=== PATIENT | male | born 1990 | race American Indian/Alaskan Native ===

== ENCOUNTER 2016-06-29 13:00 | Emergency (ER) | payer OTHER ==
[2016-06-29 13:46] VITALS: BP 116/72
--- NOTE | 2016-06-29 21:12 | Emergency Department Report ---
Chief Complaint: Pain General Stated Complaint: BODY PAIN/DIZZY Time Seen by Provider: 06/29/16 20:06 - HPI History of Present Illness: 26-year-old male presents today complaining of body aches 2 days. Patient states he is having back pain and it hurts when he presses on his chest. Pain is worse with movement and rates it as a 6 out of 10. Denies dysuria, increased urinary frequency or urgency, cold symptoms, fever, chills, nausea, vomiting, abdominal pain, shortness of breath. Denies trying any medication for symptomatic relief. Patient states that he had some milk prior to symptoms. Denies injury or trauma. - ROS Review of Systems: Per HPI - Exam Vital Signs: Vital Signs 06/29/16 13:43 Temperature 98.8 F Pulse Rate 81 Respiratory 18 Rate Blood Pressure 116/72 O2 Sat by Pulse 99 Oximetry Physical Exam: GENERAL: The patient is well-developed and well-nourished. Patient is in NAD. HEAD: Normocephalic. Atraumatic. EYES: PERRL. EARS: External auditory canals and tympanic membranes clear; hearing grossly intact. NOSE: Normal nasal mucosa with no nasal discharge. THROAT: No erythema, swelling or exudates. NECK: Supple, nontender, without lymphadenopathy. No midline or paraspinal tenderness. BACK: Full ROM. No midline tenderness. Minimal tenderness to palpation of paraspinal thoracic region. No tenderness to palpation or sciatic notch bilaterally. Negative straight leg raise bilaterally. CHEST/LUNGS: Clear to auscultation throughout. CHEST WALL: Minimal tenderness to palpation over the sternum. HEART/CARDIOVASCULAR: Regular rate and rhythm. No murmurs, rubs or gallops. ABDOMEN: Abdomen is soft, nontender. Bowel sounds normoactive. No guarding or rebound tenderness. EXTREMITIES: Peripheral pulses intact. Capillary refill less than 2 seconds. NEURO: Alert and oriented x 3. Normal gait. MSE screening note: Focused history and physical exam performed. Due to findings the following was ordered: ED Disposition for MSE Disposition: MEDICAL SCREENING EXAM-LEFT Condition: Stable Referrals: PRIMARY CARE, [Primary Care Provider] - 3-5 Days
== END 2016-06-29 21:09 | disposition left against medical advice (07) ==
LOC: ED 13:00
DX: M79.1 Myalgia (principal); M54.9 Dorsalgia, unspecified; R07.9 Chest pain, unspecified; R42 Dizziness and giddiness; Z53.21 Procedure and treatment not carried out due to patient leaving prior to being seen by health care provider

== ENCOUNTER 2016-10-11 09:45 | Emergency (ER) | payer OTHER ==
--- NOTE | 2016-10-11 13:02 | Emergency Department Report ---
ED Chest Pain HPI - General Chief Complaint: Chest Pain Stated Complaint: CHEST PAIN Time Seen by Provider: 10/11/16 12:32 Source: patient Mode of arrival: Ambulatory Limitations: No Limitations - History of Present Illness Initial Comments: 26-year-old male past medical history rhabdomyolysis, persistent chest pain presents with complaint of 2-3 days of anterior chest discomfort. States that it occurs at rest or with exertion last for a few seconds and goes away. Patient states that he has been evaluated for chest pain in the past. Denies any associated diaphoresis shortness of breath nausea vomiting diarrhea no abdominal pain. Denies any direct trauma to chest. No recent travel. Denies any recent surgeries. No history of heart attack in mother or father. No personal history of PE or DVT. Reports no leg swelling. No recent surgeries. On exam patient is awake alert and oriented 3 not in acute distress appears comfortable fully cooperative. Has not taken any medicine for the pain. Onset/Timin -: days(s) Onset: during rest, during exertion Pain Location: substernal Pain Radiation: none Severity: moderate Severity scale (0 -10): 5 Quality: aching Consistency: intermittent, now resolved Improves With: nothing Worsens With: nothing re: nausea - Related Data Previous Rx's Medication Instructions Recorded Last Taken Type Famotidine [Pepcid] 20 mg PO BID PRN #30 tablet 10/11/16 Unknown Rx Naproxen [Naproxen TAB] 250 mg PO BID PRN #25 tablet 10/11/16 Unknown Rx Allergies Allergy/AdvReac Type Severity Reaction Status Date / Time No Known Allergies Allergy Verified 09/03/15 18:13 RAHEL score - Rahel Score Age > 65: (0) No Aspirin use within the Past 7 Days: (0) No 3 or more CAD Risk Factors: (0) No 2 or more Angina events in past 24 hrs: (0) No Known CAD with more than 50% Stenosis: (0) No Elevated Cardiac Markers: (0) No ST Deviation Greater than 0.5mm: (0) No RAHEL Score: 0 ED Review of Systems ROS: Stated complaint: CHEST PAIN Other details as noted in HPI Constitutional: denies: chills, fever Eyes: denies: eye pain, eye discharge, vision change ENT: denies: ear pain, throat pain Respiratory: denies: cough, shortness of breath, wheezing Cardiovascular: chest pain (intermittent chest pain, this is occurred to him in the past). denies: palpitations Endocrine: no symptoms reported Gastrointestinal: denies: abdominal pain, nausea, diarrhea Genitourinary: denies: urgency, dysuria Musculoskeletal: denies: back pain, joint swelling, arthralgia Skin: denies: rash, lesions Neurological: denies: headache, weakness, paresthesias Psychiatric: denies: anxiety, depression Hematological/Lymphatic: denies: easy bleeding, easy bruising ED Past Medical Hx - Past Medical History Previous Medical History?: Yes Hx Hypertension: No Hx CVA: No Hx Heart Attack/AMI: No Hx Congestive Heart Failure: No Hx Diabetes: No Hx Deep Vein Thrombosis: No Hx Pulmonary Embolism: No Hx GERD: No Hx Liver Disease: No Hx Renal Disease: No Hx Sickle Cell Disease: No Hx Arthritis: No Hx Headaches / Migraines: No Hx Seizures: No Hx Kidney Stones: No Hx Psychiatric Treatment: No Hx Asthma: No Hx COPD: No Hx Tuberculosis: No Hx Dementia: No Hx HIV: No - Surgical History Past Surgical History?: No Hx Coronary Stent: No Hx Open Heart Surgery: No Hx Pacemaker: No Hx Internal Defibrillator: No Hx Cholecystectomy: No Hx Appendectomy: No Hx Breast Surgery: No - Social History Smoking Status: Never Smoker Substance Use Type: None - Medications Home Medications: Home Medications Medication Instructions Recorded Confirmed Last Taken Type Famotidine [Pepcid] 20 mg PO BID PRN #30 tablet 10/11/16 Unknown Rx Naproxen [Naproxen TAB] 250 mg PO BID PRN #25 tablet 10/11/16 Unknown Rx ED Physical Exam - General Limitations: No Limitations General appearance: alert, in no apparent distress - Head Head exam: Present: atraumatic, normocephalic - Eye Eye exam: Present: normal appearance, PERRL, EOMI - ENT ENT exam: Present: mucous membranes moist - Neck Neck exam: Present: normal inspection, full ROM - Respiratory Respiratory exam: Present: normal lung sounds bilaterally, chest wall tenderness (reproducible pain in anterior chest wall at borders of sternum). Absent: respiratory distress - Cardiovascular Cardiovascular Exam: Present: regular rate, normal rhythm. Absent: systolic murmur, diastolic murmur, rubs, gallop - GI/Abdominal GI/Abdominal exam: Present: soft, normal bowel sounds - Rectal Rectal exam: Present: deferred - Extremities Exam Extremities exam: Present: normal inspection, normal capillary refill - Back Exam Back exam: Present: normal inspection - Neurological Exam Neurological exam: Present: alert, oriented X3, CN II-XII intact, normal gait - Psychiatric Psychiatric exam: Present: normal affect, normal mood - Skin Skin exam: Present: warm, dry, intact, normal color. Absent: rash ED Course Vital Signs 10/11/16 10/11/16 10:06 13:18 Temperature 98.2 F Pulse Rate 68 Respiratory 20 16 Rate Blood Pressure 115/76 O2 Sat by Pulse 100 Oximetry ED Medical Decision Making - Lab Data Result diagrams: 10/11/16 13:44 10/11/16 13:44 - Medical Decision Making A/P: Musculoskeletal chest pain, costochondritis 1-this patient has had history of recurrent chest pain we performed EKG chest x- ray labs including troponin and CK, all within normal limits. D-dimer negative. 2-RAHEL score 0, HEART Score 0 points, Low Score (0-3 points) Risk of MACE of 0.9 -1.7%. 3-patient's CK only very mildly elevated in 300s, patient has history of rhabdomyolysis but does not have current clinical symptoms or lab work suggestive of 4-agency history negative lab findings and negative diagnostics here in the ED with low risk stratification for PE and heart disease his pain is most likely musculoskeletal as it is reproducible on clinical exam. I will give patient outpatient follow-up with cardiology. 5-naproxen 500 mg when necessary for discomfort, will also give patient Pepcid to mitigate any heartburn 6- case d/w dr. granados before wi Critical care attestation.: If time is entered above; I have spent that time in minutes in the direct care of this critically ill patient, excluding procedure time. ED Disposition Clinical Impression: Costochondral chest pain Disposition: DISCHARGED TO HOME OR SELFCARE Is pt being admited?: No Does the pt Need Aspirin: No Condition: Stable Instructions: Chest Pain (ED), Costochondritis (ED) Prescriptions: Famotidine [Pepcid] 20 mg PO BID PRN #30 tablet PRN Reason: Indigestion Naproxen [Naproxen TAB] 250 mg PO BID PRN #25 tablet PRN Reason: Pain Referrals: KEN THEODORE MD [Staff Physician] - 3-5 Days ARSEN OROZCO MD [Staff Physician] - 3-5 Days [facility] [Provider Group] - 3-5 Days Forms: Work/School Release Form(ED) Time of Disposition: 15:32
[2016-10-11] MEDS ORDERED: TYLENOL PO ONE (13:04)
--- NOTE | 2016-10-11 13:35 | XRay Report ---
CHEST 2 VIEWS INDICATION: Chest pain. COMPARISON: 09/03/2015. FINDINGS: PA and lateral chest radiographs demonstrate normal cardiomediastinal silhouette. Clear lungs. Intact bones. CONCLUSION: No acute disease in the chest. Thank you for the opportunity to participate in this patient's care.
[2016-10-11 14:04] LABS: Basophils % (Auto) 1.2 % (0.0-1.8); Eosinophils % (Auto) 2.9 % (0.0-4.3); Hematocrit 42.1 % (35.5-45.6); Hemoglobin 14.7 gm/dl (11.8-15.2); Mean Corpuscular HGB Conc 35 % (32-34); Mean Corpuscular Hemoglobin 27 pg (28-32); Mean Corpuscular Volume 77 fl (84-94); Platelet Count 183 K/mm3 (140-440); Red Blood Count 5.47 M/mm3 (3.65-5.03); Red Cell Distribution Width 13.9 % (13.2-15.2)
[2016-10-11 14:09] LABS: Bilirubin,Urine NEG (Negative); Blood,Urine NEG (Negative); Ketones,Urine NEG (Negative); Leukocyte Esterase,Urine NEG (Negative); Nitrite,Urine NEG (Negative); Protein,Urine <15 mg/dL mg/dL (Negative); Urobilinogen,Urine < 2.0 mg/dL (<2.0); WBC,Urine < 1.0 /HPF (0.0-6.0)
[2016-10-11 14:20] LABS: Anion Gap 13 mmol/L; Blood Urea Nitrogen 10 mg/dL (9-20); Calcium 9.2 mg/dL (8.4-10.2); Carbon Dioxide 30 mmol/L (22-30); Chloride 102.5 mmol/L (98-107); Creatine Kinase 343 units/L (55-170); Glucose 70 mg/dL (75-100); Potassium 3.9 mmol/L (3.6-5.0); Sodium 142 mmol/L (137-145)
[2016-10-11 16:02] VITALS: BP 114/69
== END 2016-10-11 15:34 | disposition home or self-care (01) ==
LOC: ED 09:45
DX: M94.0 Chondrocostal junction syndrome [Tietze] (principal); R07.89 Other chest pain
CPT/HCPCS: 36415; 71020; 80048; 81001; 82550; 82553; 83735; 84484; 85025; 85379; 93005; 93010

== ENCOUNTER 2016-12-29 11:29 | Emergency (ER) | payer OTHER ==
--- NOTE | 2016-12-29 15:22 | Cat Scan Report ---
FINAL REPORT PROCEDURE: CT HEAD/BRAIN WO CON TECHNIQUE: Computerized tomography of the head was performed without contrast material. HISTORY: headache COMPARISON: No prior studies are available for comparison. FINDINGS: No CT evidence of intracranial mass, hemorrhage, acute territorial infarction, or hydrocephalus. The intracranial arteries are symmetric in density. Calvarium is intact. Visualized paranasal sinuses and mastoids are aerated. IMPRESSION: No CT evidence of acute abnormality
--- NOTE | 2016-12-29 16:36 | Emergency Department Report ---
Entered by JERALD METCALF, acting as scribe for ISA VILLA PA. ED Headache HPI - General Chief Complaint: Headache Stated Complaint: HEAD PAIN Time Seen by Provider: 12/29/16 14:43 Source: patient Exam Limitations: no limitations - History of Present Illness Initial Comments: 26 y/o male presents to the ED c/o headache x 1 week. Associated symptoms include neck pain and sinus pain but he denies blurry vision, nausea, vomiting, fever and chills. Pain is described as 6/10 on a severity scale. No alleviating or aggravating factors. NKDA. Headache has been coming and going over the past week with no episode of chronic headache. Patient also reported that he is having in pain but both nasal area. Nasal congestion without any running. Denies any cough, shortness of breath or chest pain. Timing/Duration: 1 week Quality: severe, achy Head Injury Location: temporal, parietal, other (right side of head radiating to back) Recent Head Trauma: no recent headache/trauma, frequent headaches (right side of head times one week) Modifying Factors: improves with: rest Associated Symptoms: other (neck pain, sinus pain, no blurry vision). denies: confusion, fatigue, facial pain, fever/chills, flushing, loss of consciousness, nausea/vomiting, nasal congestion, nasal drainage, numbness in legs/feet, rash, seizures, sinus infection, stiff neck, vision changes, weakness Allergies/Adverse Reactions: Allergies No Known Allergies Allergy (Verified 12/29/16 11:46) Home Medications: Ambulatory Orders Amoxicillin/K Clav Tab [Augmentin 875 mg] 1 tab PO Q12HR #20 tab 12/29/16 Cetirizine HCl [ZyrTEC] 10 mg PO QDAY #14 capsule 12/29/16 Fluticasone [Flonase] 1 spray NS QDAY #1 bottle 12/29/16 Ibuprofen [Motrin] 600 mg PO Q8H PRN #15 tablet 12/29/16 ED Review of Systems Comment: All other systems reviewed and negative Constitutional: denies: chills, fever Eyes: denies: eye discharge, vision change, other (blurry vision) ENT: congestion. denies: ear pain, throat pain, hearing loss, epistaxis Respiratory: no symptoms reported Cardiovascular: denies: chest pain, palpitations, edema, syncope Gastrointestinal: denies: abdominal pain, nausea, vomiting Skin: denies: rash Neurological: headache. denies: weakness, confusion, abnormal gait, vertigo ED Past Medical Hx - Past Medical History Previous Medical History?: No Hx Hypertension: No Hx CVA: No Hx Heart Attack/AMI: No Hx Congestive Heart Failure: No Hx Diabetes: No Hx Deep Vein Thrombosis: No Hx Pulmonary Embolism: No Hx GERD: No Hx Liver Disease: No Hx Renal Disease: No Hx Sickle Cell Disease: No Hx Arthritis: No Hx Headaches / Migraines: No Hx Seizures: No Hx Kidney Stones: No Hx Psychiatric Treatment: No Hx Asthma: No Hx COPD: No Hx Tuberculosis: No Hx Dementia: No Hx HIV: No - Surgical History Past Surgical History?: No Hx Coronary Stent: No Hx Open Heart Surgery: No Hx Pacemaker: No Hx Internal Defibrillator: No Hx Cholecystectomy: No Hx Appendectomy: No Hx Breast Surgery: No - Family History Family history: no significant - Social History Smoking Status: Never Smoker Substance Use Type: None - Medications Home Medications: Home Medications Medication Instructions Recorded Confirmed Last Taken Type Amoxicillin/K Clav Tab [Augmentin 1 tab PO Q12HR #20 tab 12/29/16 Unknown Rx 875 mg] Cetirizine HCl [ZyrTEC] 10 mg PO QDAY #14 capsule 12/29/16 Unknown Rx Fluticasone [Flonase] 1 spray NS QDAY #1 bottle 12/29/16 Unknown Rx Ibuprofen [Motrin] 600 mg PO Q8H PRN #15 tablet 12/29/16 Unknown Rx ED Physical Exam - General Limitations: No Limitations General appearance: alert, in no apparent distress - Head Head exam: Present: atraumatic, normocephalic, normal inspection - Expanded Head Exam Expanded Head exam: Absent: laceration, abrasion, contusion, hematoma, racoon eyes, enciso's sign, general tenderness, tenderness of temporal artery, CSF rhinorrhea , CSF otorrhea - Eye Eye exam: Present: normal appearance, PERRL, EOMI. Absent: periorbital swelling , periorbital tenderness Pupils: Present: normal accommodation - ENT ENT exam: Present: normal exam, normal orophraynx, mucous membranes moist, normal external ear exam, other (maxillary sinus tender to palpate, congested erythema, clear drainage, congested behind TM's). Absent: TM's normal bilaterally - Neck Neck exam: Present: normal inspection, full ROM. Absent: tenderness, meningismus, lymphadenopathy - Respiratory Respiratory exam: Present: normal lung sounds bilaterally. Absent: respiratory distress, chest wall tenderness - Cardiovascular Cardiovascular Exam: Present: regular rate, normal rhythm, normal heart sounds. Absent: systolic murmur, diastolic murmur - GI/Abdominal GI/Abdominal exam: Present: soft, normal bowel sounds. Absent: tenderness, guarding, rebound - Extremities Exam Extremities exam: Present: normal inspection, full ROM, normal capillary refill. Absent: tenderness, pedal edema, joint swelling, calf tenderness - Back Exam Back exam: Present: normal inspection, full ROM. Absent: tenderness - Neurological Exam Neurological exam: Present: alert, oriented X3, normal gait, reflexes normal. Absent: motor sensory deficit - Expanded Neurological Exam Expanded Neurological exam: Absent: innattentive, memory loss-remote event, memory loss- recent event, ataxia, receptive aphasia, expressive aphasia, total aphasia, tremor, protecting the airway Patient oriented to: Present: person, place, time Speech: Present: fluid speech Cranial nerves: EOM's Intact: Normal, Gag Reflex: Normal, Tongue Deviation: Normal, Nystagmus: Normal, Facial Sensation: Normal, Facial Palsy with Forehead Movement: Normal, Facial Palsy without Forehead Movement: Normal Cerebellar function: Finger to Nose: Normal, Heel to [place]: Normal, Romberg: Normal Upper motor neuron: Al Neglect: Normal, Pronator Drift: Normal, Babinski Sign : Normal, Sensory Extinction: Normal Sensory exam: Upper Extremity Light Touch: Normal, Upper Extremity Pin Prick: Normal, Upper Extremity Temperature: Normal, UE 2 Point Discrimination: Normal, Lower Extremity Light Touch: Normal, Lower Extremity Pin Prick: Normal, Lower Extremity Temperature: Normal, LE 2 Point Discrimination: Normal Motor strength exam: RUE: 5, LUE: 5, RLE: 5, LLE: 5 DTR: bicep (R): 2+, bicep (L): 2+, tricep (R): 2+, tricep (L): 2+, knee (R): 2+ , knee (L): 2+, ankle (R): 2+, ankle (L): 2+ Best Eye Response ([place]): (4) open spontaneously Best Motor Response ([place]): (6) obeys commands Best Verbal Response ([place]): (5) oriented Joana Total: 15 - Psychiatric Psychiatric exam: Present: normal affect, normal mood - Skin Skin exam: Present: warm, dry, intact, normal color. Absent: rash ED Course Vital Signs 12/29/16 11:42 Temperature 98.6 F Pulse Rate 83 Respiratory 18 Rate Blood Pressure 131/86 O2 Sat by Pulse 100 Oximetry - Reevaluation(s) Reevaluation #1: 12/29/16 16:15 Patient stable throughout ED course ED Medical Decision Making - Radiology Data Radiology results: report reviewed CT scan of the head revealed no evidence of abnormality. - Medical Decision Making ED course: Patient with headache and sinusitis. I discussed the patient diagnosis and treatment plan and also CT scan results and he voiced understanding of discharge diagnosis. Patient requests an upper primary care doctor so I refer him to on-call Dr. Medina. Patient discharged home with prescription for Zyrtec, Flonase and Augmentin. ED Disposition Clinical Impression: Sinusitis nasal Qualifiers: Sinusitis location: maxillary Chronicity: acute Recurrence: non-recurrent Qualified Code(s): J01.00 - Acute maxillary sinusitis, unspecified Headache Qualifiers: Headache type: unspecified Headache chronicity pattern: acute headache Intractability: not intractable Qualified Code(s): R51 - Headache Disposition: - TO HOME OR SELFCARE Is pt being admited?: No Does the pt Need Aspirin: No Condition: Stable Instructions: Sinusitis (ED), Acute Headache (ED) Additional Instructions: Please follow up with primary care physician that I refer due to. Call and Saturday to schedule an appointment for physical exam Take medication as prescribed. You can use saline nasal wash to fleshier nostrils. Prescriptions: Amoxicillin/K Clav Tab [Augmentin 875 mg] 1 tab PO Q12HR #20 tab Cetirizine HCl [ZyrTEC] 10 mg PO QDAY #14 capsule Fluticasone [Flonase] 1 spray NS QDAY #1 bottle Ibuprofen [Motrin] 600 mg PO Q8H PRN #15 tablet PRN Reason: Pain Referrals: ASHISH MEDINA MD [Staff Physician] - 2-3 Days Forms: Accompanied Note, Work/School Release Form(ED) This documentation as recorded by the scribe,METCALF,JERALD,accurately reflects the service I personally performed and the decisions made by me,ISA VILLA PA.
[2016-12-29 16:39] VITALS: BP 118/80
== END 2016-12-29 16:38 | disposition home or self-care (01) ==
LOC: ED 11:29
DX: J01.00 Acute maxillary sinusitis, unspecified (principal); R51 Headache
CPT/HCPCS: 70450

== ENCOUNTER 2017-06-29 05:06 | Emergency (ER) | payer OTHER ==
[2017-06-29 05:17] VITALS: BP 132/89
[2017-06-29 05:43] LABS: Basophils # (Auto) 0.1 K/mm3 (0.0-0.1); Eosinophils # (Auto) 0.2 K/mm3 (0.0-0.4); Eosinophils % (Auto) 3.3 % (0.0-4.3); Hematocrit 45.5 % (35.5-45.6); Hemoglobin 15.5 gm/dl (11.8-15.2); Lymphocytes # (Auto) 2.6 K/mm3 (1.2-5.4); Lymphocytes % (Auto) 44.6 % (13.4-35.0); Mean Corpuscular HGB Conc 34 % (32-34); Mean Corpuscular Hemoglobin 27 pg (28-32); Mean Corpuscular Volume 80 fl (84-94); Monocytes # (Auto) 0.4 K/mm3 (0.0-0.8); Monocytes % (Auto) 7.6 % (0.0-7.3); Platelet Count 194 K/mm3 (140-440); Red Blood Count 5.71 M/mm3 (3.65-5.03); Red Cell Distribution Width 14.5 % (13.2-15.2)
[2017-06-29 06:13] LABS: Alanine Aminotransferase 24 units/L (7-56); Albumin 4.4 g/dL (3.9-5); BUN/Creatinine Ratio 9; Blood Urea Nitrogen 7 mg/dL (9-20); Calcium 9.2 mg/dL (8.4-10.2); Hemolysis Index 9
[2017-06-29] MEDS ORDERED: ZOFRAN ODT PO ONE (06:37)
[2017-06-29] MEDS ORDERED: PEPCID PO ONE (06:38)
[2017-06-29] MEDS ORDERED: TYLENOL PO ONE (06:38)
--- NOTE | 2017-06-29 06:47 | Emergency Department Report ---
HPI - General Chief Complaint: Abdominal Pain Time Seen by Provider: 06/29/17 06:14 - HPI HPI: Patient is a 27-year-old male whom presents for evaluation of abdominal pain. The patient reports constant abdominal pain for the past 3 hours, currently 5/ 10 in severity, crampy in quality, improved with defecation. The patient denies fever, trauma to the abdomen, chills, night sweats, diarrhea, blood in the stool , dark tarry stool, dysuria, hematuria, flank pain, genital discharge, inability to pass flatus. ED Past Medical Hx - Past Medical History Previous Medical History?: No Hx Hypertension: No Hx CVA: No Hx Heart Attack/AMI: No Hx Congestive Heart Failure: No Hx Diabetes: No Hx Deep Vein Thrombosis: No Hx Pulmonary Embolism: No Hx GERD: No Hx Liver Disease: No Hx Renal Disease: No Hx Sickle Cell Disease: No Hx Arthritis: No Hx Headaches / Migraines: No Hx Seizures: No Hx Kidney Stones: No Hx Psychiatric Treatment: No Hx Asthma: No Hx COPD: No Hx Tuberculosis: No Hx Dementia: No Hx HIV: No - Surgical History Past Surgical History?: No Hx Coronary Stent: No Hx Open Heart Surgery: No Hx Pacemaker: No Hx Internal Defibrillator: No Hx Cholecystectomy: No Hx Appendectomy: No Hx Breast Surgery: No - Social History Smoking Status: Never Smoker Substance Use Type: None - Medications Home Medications: Home Medications Medication Instructions Recorded Confirmed Last Taken Type Amoxicillin/K Clav Tab [Augmentin 1 tab PO Q12HR #20 tab 12/29/16 Unknown Rx 875 mg] Cetirizine HCl [ZyrTEC] 10 mg PO QDAY #14 capsule 12/29/16 Unknown Rx Fluticasone [Flonase] 1 spray NS QDAY #1 bottle 12/29/16 Unknown Rx Ibuprofen [Motrin] 600 mg PO Q8H PRN #15 tablet 12/29/16 Unknown Rx Cyclobenzaprine HCl [Flexeril 5 MG 5 mg PO Q8HR PRN #15 tab 06/29/17 Unknown Rx TAB] Omeprazole Magnesium [PriLOSEC Otc] 20 mg PO QDAY #14 tablet. 06/29/17 Unknown Rx Ondansetron [Zofran TAB] 4 mg PO Q8HR PRN #15 tablet 06/29/17 Unknown Rx ED Review of Systems ROS: Stated complaint: ABD PAIN Other details as noted in HPI Constitutional: denies: fever ENT: denies: throat or neck pain Respiratory: denies: cough, shortness of breath Cardiovascular: denies: chest pain Endocrine: denies unexplained weight loss or gain Gastrointestinal: reports abdominal pain, nausea Genitourinary: denies: dysuria Musculoskeletal: denies: leg swelling Skin: denies: rash Neurological: denies: headache Hematological/Lymphatic: denies: easy bleeding or easy bruising Psych: denies sadness or hopelessness Physical Exam - Physical Exam Vital Signs: Vital Signs 06/29/17 05:10 Temperature 97.6 F Pulse Rate 99 H Respiratory 16 Rate Blood Pressure 132/89 O2 Sat by Pulse 100 Oximetry Physical Exam: General: well-nourished, well-developed, no acute distress Head: Normocephalic, atraumatic Eyes: normal sclera ENT: Mucous membranes are pink and moist Neck: trachea midline, neck supple, No neck stiffness, no cervical adenopathy Respiratory: Breath sounds equal bilaterally, no wheezing, rales, or rhonchi Cardio: S1 and S2 present, no murmurs, rubs, gallops, capillary refill is brisk Abdomen: Normoactive bowel sounds, soft abdomen, periumbilical tenderness to palpation present, no rigidity, no guarding or rebound tenderness Musc: No pitting edema Skin: No rash Neuro: no facial drooping, normal speech Psych: Normal affect ED Course Vital Signs 06/29/17 05:10 Temperature 97.6 F Pulse Rate 99 H Respiratory 16 Rate Blood Pressure 132/89 O2 Sat by Pulse 100 Oximetry ED Medical Decision Making - Lab Data Result diagrams: 06/29/17 05:24 06/29/17 05:24 - Medical Decision Making The patient was seen and examined by myself. The patient is placed on a child monitor and continuous pulse ox. On initial evaluation, the patient was found to be in no distress. Evaluation orders are placed. The patient is given Tylenol or Pepcid for his pain. Lab results were non-concerning including WBC, hemoglobin, hematocrit, electrolytes, renal function, LFTs, lipase, and urinalysis. The patient was reevaluated and reported that their symptoms were markedly improved. The patient is stable for discharge with outpatient follow- up. The patient is given follow-up and return instructions. The patient expressed understanding and agreed with the plan. The patient is discharged in stable condition. Critical care attestation.: If time is entered above; I have spent that time in minutes in the direct care of this critically ill patient, excluding procedure time. ED Disposition Clinical Impression: Abdominal pain, acute, periumbilical, Dehydration Disposition: DC-01 TO HOME OR SELFCARE Is pt being admited?: No Does the pt Need Aspirin: No Condition: Stable Instructions: Acute Abdominal Pain (ED) Referrals: SCOOTER TIWARI MD [Primary Care Provider] - 3-5 Days Time of Disposition: 06:49
[2017-06-29 07:21] LABS: Bilirubin,Urine NEG (Negative); Blood,Urine NEG (Negative); Color,Urine Yellow (Yellow); Nitrite,Urine NEG (Negative); Urobilinogen,Urine < 2.0 mg/dL (<2.0)
[2017-06-29 07:25] LABS: Amorphous Crystals,Urine 2+
== END 2017-06-29 08:09 | disposition home or self-care (01) ==
LOC: ED 05:06
DX: R10.33 Periumbilical pain (principal); E86.0 Dehydration
CPT/HCPCS: 36415; 80053; 81001; 83690; 85025; 99284

== ENCOUNTER 2017-11-24 19:46 | Emergency (ER) | payer OTHER ==
[2017-11-24 20:51] LABS: Basophils # (Auto) 0.1 K/mm3 (0.0-0.1); Basophils % (Auto) 0.9 % (0.0-1.8); Eosinophils # (Auto) 0.2 K/mm3 (0.0-0.4); Eosinophils % (Auto) 3.3 % (0.0-4.3); Hematocrit 46.4 % (35.5-45.6); Hemoglobin 15.9 gm/dl (11.8-15.2); Lymphocytes # (Auto) 3.1 K/mm3 (1.2-5.4); Lymphocytes % (Auto) 44.1 % (13.4-35.0); Mean Corpuscular HGB Conc 34 % (32-34); Mean Corpuscular Hemoglobin 27 pg (28-32); Mean Corpuscular Volume 78 fl (84-94); Monocytes # (Auto) 0.4 K/mm3 (0.0-0.8); Monocytes % (Auto) 6.2 % (0.0-7.3); Platelet Count 210 K/mm3 (140-440); Red Blood Count 5.93 M/mm3 (3.65-5.03); Red Cell Distribution Width 13.3 % (13.2-15.2)
[2017-11-24 20:53] LABS: WBC,Urine < 1.0 /HPF (0.0-6.0)
[2017-11-24 20:56] LABS: Bilirubin,Urine NEG (Negative); Blood,Urine NEG (Negative); Color,Urine Straw (Yellow); Protein,Urine <15 mg/dL mg/dL (Negative); Urobilinogen,Urine < 2.0 mg/dL (<2.0)
[2017-11-24 21:10] LABS: Alanine Aminotransferase 19 units/L (7-56); Albumin 4.6 g/dL (3.9-5); BUN/Creatinine Ratio 11; Blood Urea Nitrogen 11 mg/dL (9-20); Calcium 9.5 mg/dL (8.4-10.2); Hemolysis Index 15; Lipase 50 units/L (13-60)
--- NOTE | 2017-11-25 01:56 | Emergency Department Report ---
ED General Adult HPI - General Chief complaint: Abdominal Pain Stated complaint: ABD PAIN Time Seen by Provider: 11/25/17 01:37 Source: patient Mode of arrival: Ambulatory Limitations: No Limitations - History of Present Illness Initial comments: Patient presents with multiple complaints of varying durations, with primary source of discomfort appearing to be lower back discomfort, which is aggravated by movement. Discomfort is a tightness and aching sensation, felt in his lower lumbar back, moderate intensity, 5-6 out of 10, and increased with movement, or twisting. It is not aggravated by food. He has not had any injury. He's had no prior history of back problems. He also has a complaint of abdominal discomfort, which he finds it difficult to localize, but appears to be general discomfort and crampy activity, of moderate severity, 5-6 out of 10, and there also seems to be a separate component of epigastric discomfort, which is aggravated by eating, and followed by a sensation of severe hunger shortly after eating. He is also concerned about possible exposure to unusual chemicals at work which have given him sensations of difficulty breathing when he has been around the fumes, but was told that he needed a doctor's note for evaluation in order to remove him from the fumes. He has not seen a specialist, and he has not followed with a Worker's Comp. doctor as well. 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 He has no prior history of ulcer disorder, he does not smoke, and has no history of asthma. He is in good general health otherwise , and has no gastrointestinal history, no ulcer history, and no symptoms suggestive of GERD. He has no history of lower back injury, and he has not fallen, but reports that he has significant physical activity at work, and appears to have a repetitive component to it, and there may be some significant lifting as well, but is difficult to obtain exact details. Patient has no other constitutional symptoms, and no other focal symptoms. Back symptoms have been present on an intermittent basis, worse by movement, and present for about a week. He also reports stomach discomfort has been present for about a week or so, but there has been some questionable history of other similar symptoms in the past, but there's been no formal workup. Chest discomfort has been recurrent, and exposure has been going on for more than a year. He has no shortness of breath at this time. - Related Data Previous Rx's Medication Instructions Recorded Last Taken Type Amoxicillin/K Clav Tab [Augmentin 1 tab PO Q12HR #20 tab 12/29/16 Unknown Rx 875 mg] Cetirizine HCl [ZyrTEC] 10 mg PO QDAY #14 capsule 12/29/16 Unknown Rx Fluticasone [Flonase] 1 spray NS QDAY #1 bottle 12/29/16 Unknown Rx Ibuprofen [Motrin] 600 mg PO Q8H PRN #15 tablet 12/29/16 Unknown Rx Ondansetron [Zofran TAB] 4 mg PO Q8HR PRN #15 tablet 06/29/17 Unknown Rx Cyclobenzaprine HCl [Flexeril 5 MG 5 mg PO Q8HR PRN #15 tab 11/25/17 Unknown Rx TAB] Meloxicam 7.5 mg PO DAILY #30 tablet 11/25/17 Unknown Rx Omeprazole Magnesium [PriLOSEC Otc] 20 mg PO QDAY #14 tablet. 11/25/17 Unknown Rx Allergies Allergy/AdvReac Type Severity Reaction Status Date / Time No Known Allergies Allergy Verified 12/29/16 11:46 ED Review of Systems ROS: Stated complaint: ABD PAIN Other details as noted in HPI Constitutional: denies: chills, fever Eyes: denies: eye pain, eye discharge, vision change ENT: denies: ear pain, throat pain Respiratory: shortness of breath (with chemical exposure). denies: cough Cardiovascular: denies: chest pain, palpitations Endocrine: no symptoms reported Gastrointestinal: abdominal pain (generalized, achy and crampy, moderate severity), other (sensation of hunger, some epigastric discomfort). denies: nausea, diarrhea, constipation, hematemesis, melena, hematochezia Musculoskeletal: back pain. denies: joint swelling, arthralgia Skin: denies: rash, lesions Neurological: denies: headache, weakness, paresthesias Hematological/Lymphatic: denies: easy bleeding, easy bruising ED Past Medical Hx - Past Medical History Previous Medical History?: No Hx Hypertension: No Hx CVA: No Hx Heart Attack/AMI: No Hx Congestive Heart Failure: No Hx Diabetes: No Hx Deep Vein Thrombosis: No Hx Pulmonary Embolism: No Hx GERD: No Hx Liver Disease: No Hx Renal Disease: No Hx Sickle Cell Disease: No Hx Arthritis: No Hx Headaches / Migraines: No Hx Seizures: No Hx Kidney Stones: No Hx Psychiatric Treatment: No Hx Asthma: No Hx COPD: No Hx Tuberculosis: No Hx Dementia: No Hx HIV: No - Surgical History Past Surgical History?: No Hx Coronary Stent: No Hx Open Heart Surgery: No Hx Pacemaker: No Hx Internal Defibrillator: No Hx Cholecystectomy: No Hx Appendectomy: No Hx Breast Surgery: No - Social History Smoking Status: Never Smoker Substance Use Type: None - Medications Home Medications: Home Medications Medication Instructions Recorded Confirmed Last Taken Type Amoxicillin/K Clav Tab [Augmentin 1 tab PO Q12HR #20 tab 12/29/16 Unknown Rx 875 mg] Cetirizine HCl [ZyrTEC] 10 mg PO QDAY #14 capsule 12/29/16 Unknown Rx Fluticasone [Flonase] 1 spray NS QDAY #1 bottle 12/29/16 Unknown Rx Ibuprofen [Motrin] 600 mg PO Q8H PRN #15 tablet 12/29/16 Unknown Rx Ondansetron [Zofran TAB] 4 mg PO Q8HR PRN #15 tablet 06/29/17 Unknown Rx Cyclobenzaprine HCl [Flexeril 5 MG 5 mg PO Q8HR PRN #15 tab 11/25/17 Unknown Rx TAB] Meloxicam 7.5 mg PO DAILY #30 tablet 11/25/17 Unknown Rx Omeprazole Magnesium [PriLOSEC Otc] 20 mg PO QDAY #14 tablet. 11/25/17 Unknown Rx ED Physical Exam - General Limitations: No Limitations, Other (awake and oriented, but difficult to obtain clearcut or distinct history. Patient is often monosyllabic) General appearance: alert, in no apparent distress - Head Head exam: Present: atraumatic, normocephalic - Eye Eye exam: Present: PERRL, EOMI - ENT ENT exam: Present: normal exam - Neck Neck exam: Present: normal inspection. Absent: tenderness - Respiratory Respiratory exam: Present: normal lung sounds bilaterally. Absent: respiratory distress, wheezes, rales, rhonchi - Cardiovascular Cardiovascular Exam: Present: regular rate, normal rhythm, normal heart sounds. Absent: systolic murmur, diastolic murmur - GI/Abdominal GI/Abdominal exam: Present: soft, tenderness (minimal discomfort to palpation, but abdomen entirely soft throughout and all areas), hyperactive bowel sounds ( moderately active bowel sounds, continuous, no borborygmi, no tingling, no hyperactivity of obstruction). Absent: guarding, rebound, organomegaly, mass, pulsatile mass - Rectal Rectal exam: Present: deferred - Extremities Exam Extremities exam: Present: normal inspection, full ROM - Back Exam Back exam: Present: tenderness (mild to moderate tenderness left lumbosacral myofascial soft tissue), paraspinal tenderness (bilateral lumbar paraspinal discomfort, mild to moderate, left greater than right). Absent: CVA tenderness (R), CVA tenderness (L), muscle spasm - Neurological Exam Neurological exam: Present: alert, oriented X3, CN II-XII intact. Absent: motor sensory deficit - Psychiatric Psychiatric exam: Present: flat affect ED Course Vital Signs 11/24/17 11/24/17 11/24/17 19:44 19:54 23:55 Temperature 98.4 F 98.4 F 97.9 F Pulse Rate 87 90 70 Respiratory 18 18 19 Rate Blood Pressure 129/88 129/88 Blood Pressure 127/72 [Left] O2 Sat by Pulse 98 100 100 Oximetry ED Medical Decision Making - Lab Data Result diagrams: 11/24/17 20:10 11/24/17 20:10 - Medical Decision Making This is a previously healthy patient, with no prior medical history, but a history of chronicity of symptoms with exposure to fumes at work, but is asymptomatic at this time, with also approximately a one-week history of lower back discomfort which is aggravated by movement, but without acute injury, and also with abdominal discomfort, with vague symptoms that are suggestive of a mild gastritis, possibly GERD, but he also has some hyperactive bowel sounds as well. Despite this, all examinations are benign, he has full range of motion, there is no mass on soft tissue, he has no lumbar or thoracic spinal tenderness , and abdominal examination is benign to palpation with no areas of localizing tenderness. Laboratory and urinalysis are all entirely unremarkable, and give no additional findings to suggest underlying organic pathology. My suspicion is that he has mild discomfort with exposure to chemicals, but we cannot give confirmation on the basis of his vague symptoms, then he would likely need specialty or toxicologic evaluation for this. Additional symptoms are more suggestive of small intestine hyperactivity, and possibly some gastritis or GERD. I will treat this symptomatically with antacids, as well as antispasmodics, with recommendation for follow-up with hemstitcher or primary care physician in one or 2 weeks. His lower back discomfort is more typical of strain, possibly as a result of the extent of his physical exertion or possibly a repetitive activities. I will place him on limited duties for week and give him muscle relaxants and mild analgesics. He should also have follow-up with primary care physician in a week to assess his condition. - Differential Diagnosis gastritis, GERD, gastroenteritis, low back strain, chemical fume exposure Critical Care Time: No Critical care attestation.: If time is entered above; I have spent that time in minutes in the direct care of this critically ill patient, excluding procedure time. ED Disposition Clinical Impression: Abdominal pain of unknown cause Repetitive strain injury of lower back Qualifiers: Encounter type: initial encounter Qualified Code(s): S39.012A - Strain of muscle, fascia and tendon of lower back, initial encounter Disposition: DC-01 TO HOME OR SELFCARE Is pt being admited?: No Does the pt Need Aspirin: No Condition: Stable Instructions: Low Back Strain (ED), Acute Low Back Pain (ED), Acute Abdominal Pain (ED) Prescriptions: Cyclobenzaprine HCl [Flexeril 5 MG TAB] 5 mg PO Q8HR PRN #15 tab PRN Reason: Pain Meloxicam 7.5 mg PO DAILY #30 tablet Omeprazole Magnesium [PriLOSEC Otc] 20 mg PO QDAY #14 tablet. Referrals: PRIMARY CARE [Primary Care Provider] - 3-5 Days Forms: Work/School Release Form(ED) Time of Disposition: 02:07
[2017-11-25 03:27] VITALS: BP 104/67
== END 2017-11-25 03:10 | disposition home or self-care (01) ==
LOC: ED 19:46
DX: S39.012A Strain of muscle, fascia and tendon of lower back, initial encounter (principal); X58.XXXA Exposure to other specified factors, initial encounter; Y93.89 Activity, other specified; Y92.89 Other specified places as the place of occurrence of the external cause; Y99.8 Other external cause status
CPT/HCPCS: 36415; 80053; 81001; 83690; 84484; 85025; 93005; 93010; 99283; J0153

== ENCOUNTER 2018-01-21 00:14 | Emergency (ER) | payer OTHER ==
[2018-01-21 00:24] VITALS: BP 127/82
== END 2018-01-21 02:04 | disposition left against medical advice (07) ==
LOC: ED 00:14
DX: M54.2 Cervicalgia (principal); R10.9 Unspecified abdominal pain; Z53.21 Procedure and treatment not carried out due to patient leaving prior to being seen by health care provider

== ENCOUNTER 2018-01-23 22:11 | Emergency (ER) | payer OTHER ==
[2018-01-24] MEDS ORDERED: MOTRIN PO ONE (02:18)
--- NOTE | 2018-01-24 02:23 | Emergency Department Report ---
ED Neck Pain/Injury HPI - General Chief Complaint: Neck Pain/Injury Stated Complaint: NECK PAIN,NOSE PAIN,ABD PAIN Time Seen by Provider: 01/24/18 00:38 Mode of arrival: Ambulatory Limitations: No Limitations - History of Present Illness Initial Comments: Patient is 27-year-old -British male status post fall 4 days ago while running falling on his neck and upper back complains of 4/10and upper back and neck pain pain exacerbated by movement and palpation there is no numbness no tingling or weakness no paralysis will also decrease in bowel or bladder function symptoms are relieved by rest exacerbated by movement primary concern is muscle spasm MD Complaint: neck pain, upper back pain Onset/Timin -: days(s) Place: street/outdoors Radiation: right lateral, upper back Severity: moderate Severity scale (0 -10): 4 Quality: sharp Consistency: intermittent Improves With: other (rest) Worsens With: movement of extremity, movement of neck Context: fall, turning/bending Associated Symptoms: denies: headache, fever, numbness, tingling, weakness, vertigo, difficulty walking, swollen glands, difficulty swallowing, nausea, vomiting Treatments Prior to Arrival: none - Related Data Previous Rx's Medication Instructions Recorded Last Taken Type Amoxicillin/K Clav Tab [Augmentin 1 tab PO Q12HR #20 tab 12/29/16 Unknown Rx 875 mg] Cetirizine HCl [ZyrTEC] 10 mg PO QDAY #14 capsule 12/29/16 Unknown Rx Fluticasone [Flonase] 1 spray NS QDAY #1 bottle 12/29/16 Unknown Rx Ibuprofen [Motrin] 600 mg PO Q8H PRN #15 tablet 12/29/16 Unknown Rx Ondansetron [Zofran TAB] 4 mg PO Q8HR PRN #15 tablet 06/29/17 Unknown Rx Cyclobenzaprine HCl [Flexeril 5 MG 5 mg PO Q8HR PRN #15 tab 11/25/17 Unknown Rx TAB] Meloxicam 7.5 mg PO DAILY #30 tablet 11/25/17 Unknown Rx Omeprazole Magnesium [PriLOSEC Otc] 20 mg PO QDAY #14 tablet. 11/25/17 Unknown Rx Cyclobenzaprine [Flexeril] 10 mg PO BID PRN #20 tablet 01/24/18 Unknown Rx Menthol/Camphor [[place] 1 applic TP TID PRN #1 tube 01/24/18 Unknown Rx Ointment] Naproxen [Naprosyn TAB] 500 mg PO BID PRN #30 tablet 01/24/18 Unknown Rx Allergies Allergy/AdvReac Type Severity Reaction Status Date / Time No Known Allergies Allergy Verified 12/29/16 11:46 ED Review of Systems ROS: Stated complaint: NECK PAIN,NOSE PAIN,ABD PAIN Other details as noted in HPI Constitutional: denies: chills, fever Eyes: denies: eye pain, eye discharge, vision change ENT: denies: ear pain, throat pain Respiratory: denies: cough, shortness of breath, wheezing Cardiovascular: denies: chest pain, palpitations Endocrine: no symptoms reported Gastrointestinal: denies: abdominal pain, nausea, diarrhea Genitourinary: denies: urgency, dysuria Musculoskeletal: back pain, myalgia. denies: joint swelling, arthralgia Skin: denies: rash, lesions Neurological: denies: headache, weakness, paresthesias Psychiatric: denies: anxiety, depression Hematological/Lymphatic: denies: easy bleeding, easy bruising ED Past Medical Hx - Past Medical History Previous Medical History?: No Hx Hypertension: No Hx CVA: No Hx Heart Attack/AMI: No Hx Congestive Heart Failure: No Hx Diabetes: No Hx Deep Vein Thrombosis: No Hx Pulmonary Embolism: No Hx GERD: No Hx Liver Disease: No Hx Renal Disease: No Hx Sickle Cell Disease: No Hx Arthritis: No Hx Headaches / Migraines: No Hx Seizures: No Hx Kidney Stones: No Hx Psychiatric Treatment: No Hx Asthma: No Hx COPD: No Hx Tuberculosis: No Hx Dementia: No Hx HIV: No - Surgical History Past Surgical History?: No Hx Coronary Stent: No Hx Open Heart Surgery: No Hx Pacemaker: No Hx Internal Defibrillator: No Hx Cholecystectomy: No Hx Appendectomy: No Hx Breast Surgery: No - Social History Smoking Status: Never Smoker Substance Use Type: None - Medications Home Medications: Home Medications Medication Instructions Recorded Confirmed Last Taken Type Amoxicillin/K Clav Tab [Augmentin 1 tab PO Q12HR #20 tab 12/29/16 Unknown Rx 875 mg] Cetirizine HCl [ZyrTEC] 10 mg PO QDAY #14 capsule 12/29/16 Unknown Rx Fluticasone [Flonase] 1 spray NS QDAY #1 bottle 12/29/16 Unknown Rx Ibuprofen [Motrin] 600 mg PO Q8H PRN #15 tablet 12/29/16 Unknown Rx Ondansetron [Zofran TAB] 4 mg PO Q8HR PRN #15 tablet 06/29/17 Unknown Rx Cyclobenzaprine HCl [Flexeril 5 MG 5 mg PO Q8HR PRN #15 tab 11/25/17 Unknown Rx TAB] Meloxicam 7.5 mg PO DAILY #30 tablet 11/25/17 Unknown Rx Omeprazole Magnesium [PriLOSEC Otc] 20 mg PO QDAY #14 tablet.dr 11/25/17 Unknown Rx Cyclobenzaprine [Flexeril] 10 mg PO BID PRN #20 tablet 01/24/18 Unknown Rx Menthol/Camphor [[place] 1 applic TP TID PRN #1 tube 01/24/18 Unknown Rx Ointment] Naproxen [Naprosyn TAB] 500 mg PO BID PRN #30 tablet 01/24/18 Unknown Rx ED Physical Exam - General Limitations: No Limitations General appearance: alert, in no apparent distress - Head Head exam: Present: atraumatic, normocephalic - Eye Eye exam: Present: normal appearance, PERRL, EOMI Pupils: Present: normal accommodation - ENT ENT exam: Present: normal orophraynx, mucous membranes moist, TM's normal bilaterally, normal external ear exam - Neck Neck exam: Present: normal inspection, tenderness (right lateral upper back and neck muscl pain), full ROM. Absent: lymphadenopathy, thyromegaly - Expanded Neck Exam Expanded Neck exam: Present: tenderness. Absent: midline deformity, anterior neck swelling, thyroid mass, carotid bruit, tracheal deviation - Respiratory Respiratory exam: Present: normal lung sounds bilaterally. Absent: respiratory distress, wheezes, stridor, chest wall tenderness - Cardiovascular Cardiovascular Exam: Present: regular rate, normal rhythm. Absent: systolic murmur, diastolic murmur, rubs, gallop - GI/Abdominal GI/Abdominal exam: Present: soft, normal bowel sounds. Absent: distended, tenderness, guarding, rebound, rigid, organomegaly, mass, bruit, pulsatile mass , hernia - Rectal Rectal exam: Present: deferred - Extremities Exam Extremities exam: Present: normal inspection - Back Exam Back exam: Present: normal inspection, full ROM, tenderness, muscle spasm. Absent: CVA tenderness (R), CVA tenderness (L), paraspinal tenderness, vertebral tenderness, rash noted - Neurological Exam Neurological exam: Present: alert, oriented X3, CN II-XII intact, normal gait, reflexes normal. Absent: motor sensory deficit - Expanded Neurological Exam Expanded Patient oriented to: Present: person, place, time Speech: Present: fluid speech Cranial nerves: EOM's Intact: Normal, Gag Reflex: Normal, Tongue Deviation: Normal, Nystagmus: Normal, Facial Sensation: Normal, Facial Palsy with Forehead Movement: Normal, Facial Palsy without Forehead Movement: Normal Cerebellar function: Finger to Nose: Normal, Heel to [place]: Normal, Romberg: Normal Upper motor neuron: Al Neglect: Normal, Pronator Drift: Normal, Babinski Sign : Normal, Sensory Extinction: Normal Sensory exam: Upper Extremity Light Touch: Normal, Upper Extremity Pin Prick: Normal, Upper Extremity Temperature: Normal, UE 2 Point Discrimination: Normal, Lower Extremity Light Touch: Normal, Lower Extremity Pin Prick: Normal, Lower Extremity Temperature: Normal, LE 2 Point Discrimination: Normal Motor strength exam: RUE: 5, LUE: 5, RLE: 5, LLE: 5 DTR: bicep (R): 2+, bicep (L): 2+, tricep (R): 2+, tricep (L): 2+, knee (R): 2+ , knee (L): 2+, ankle (R): 2+, ankle (L): 2+ Best Eye Response (Joana): (4) open spontaneously Best Motor Response ([place]): (6) obeys commands Best Verbal Response ([place]): (5) oriented [place] Total: 15 - Psychiatric Psychiatric exam: Present: normal affect, normal mood. Absent: anxious, flat affect, manic, suicidal ideation - Skin Skin exam: Present: warm, dry, intact, normal color. Absent: rash ED Course Vital Signs 01/23/18 01/23/18 01/24/18 22:40 23:00 02:26 Temperature 98.9 F 98 F Pulse Rate 78 77 Respiratory 18 18 18 Rate Blood Pressure 129/79 129/79 O2 Sat by Pulse 99 99 Oximetry ED Medical Decision Making - Medical Decision Making His upper back and neck strain pain improved with NSAIDs plan DC to home with NSAIDs muscle relaxants more sheet therapy , [facility] in 2-3 days neck and upper back exercises as directed patient verbalized agreement Anand will be DC'd home in stable condition at this time Critical care attestation.: If time is entered above; I have spent that time in minutes in the direct care of this critically ill patient, excluding procedure time. ED Disposition Clinical Impression: Fall Qualifiers: Encounter type: initial encounter Qualified Code(s): W19.XXXA - Unspecified fall, initial encounter Neck muscle strain Qualifiers: Encounter type: initial encounter Qualified Code(s): S16.1XXA - Strain of muscle, fascia and tendon at neck level, initial encounter Upper back strain Qualifiers: Encounter type: initial encounter Qualified Code(s): S29.012A - Strain of muscle and tendon of back wall of thorax, initial encounter Disposition: DC-01 TO HOME OR SELFCARE Is pt being admited?: No Does the pt Need Aspirin: No Condition: Good Instructions: Cervical Spine Strain (ED), Core Strengthening Exercises (GEN) Prescriptions: Cyclobenzaprine [Flexeril] 10 mg PO BID PRN #20 tablet PRN Reason: Muscle Spasm Menthol/Camphor [[place] Ointment] 1 applic TP TID PRN #1 tube PRN Reason: Pain , Severe (7-10) Naproxen [Naprosyn TAB] 500 mg PO BID PRN #30 tablet PRN Reason: Pain , Severe (7-10) Referrals: PRIMARY CARE, [Primary Care Provider] - 3-5 Days
[2018-01-24 02:34] VITALS: BP 130/80
== END 2018-01-24 02:43 | disposition home or self-care (01) ==
LOC: ED 22:11
DX: S16.1XXA Strain of muscle, fascia and tendon at neck level, initial encounter (principal); S29.012A Strain of muscle and tendon of back wall of thorax, initial encounter; W18.39XA Other fall on same level, initial encounter; Y93.02 Activity, running; Y92.89 Other specified places as the place of occurrence of the external cause; Y99.8 Other external cause status
CPT/HCPCS: 99282

== ENCOUNTER 2018-01-29 02:33 | Emergency (ER) | payer OTHER ==
--- NOTE | 2018-01-29 07:56 | Emergency Department Report ---
ED Neck Pain/Injury HPI - General Chief Complaint: Neck Pain/Injury Stated Complaint: NECK PAIN UNABLE TO SLEEP FAST HEARTBEAT Time Seen by Provider: 01/29/18 07:30 Source: patient Mode of arrival: Ambulatory Limitations: No Limitations - History of Present Illness Initial Comments: This is a 27-year-old male here reports that he has neck pain and cannot sleep at night. He says that last week he fell and after he fell he started having neck pain. He stated that he was treated here after he had a fall and he was given Flexeril and naproxen with [place] balm ointment but this did not help him. Patient was referred for follow-up but he did not go for follow-up. He denies any medical problems. Denies any numbness or tingling to extremities. Denies any head injury, nausea vomiting. Denies any chest pain, cough or shortness of breath. Denies any sore throat or headache. Denies any dizziness or or visual difficulties. His pain is 6 out of 10 and achy located to both sides of his neck. Denies any neck stiffness. Pain is worse with movement and no alleviating factors. Patient was here on 01/23/2018 status post fall with neck and upper back injury. He was evaluated with strain. He said the incident prior to 8 second happened 4 days before he presented to the emergency room while he was running he fell and injured his neck and upper back. He is not having any back pain at present. MD Complaint: neck pain (after falling), neck injury Onset/Timin -: days(s) Place: street/outdoors Radiation: right lateral, left lateral Severity: moderate Severity scale (0 -10): 6 Quality: aching Consistency: constant Improves With: none Worsens With: movement of neck Context: fall Associated Symptoms: denies: headache, fever, numbness, tingling, weakness, vertigo, difficulty walking, swollen glands, difficulty swallowing, nausea, vomiting Treatments Prior to Arrival: Ibuprofen - Related Data Previous Rx's Medication Instructions Recorded Last Taken Type Amoxicillin/K Clav Tab [Augmentin 1 tab PO Q12HR #20 tab 12/29/16 Unknown Rx 875 mg] Cetirizine HCl [ZyrTEC] 10 mg PO QDAY #14 capsule 12/29/16 Unknown Rx Fluticasone [Flonase] 1 spray NS QDAY #1 bottle 07/08/17 Unknown Rx Ibuprofen [Motrin] 600 mg PO Q8H PRN #15 tablet 12/29/16 Unknown Rx Ondansetron [Zofran TAB] 4 mg PO Q8HR PRN #15 tablet 06/29/17 Unknown Rx Cyclobenzaprine HCl [Flexeril 5 MG 5 mg PO Q8HR PRN #15 tab 11/25/17 Unknown Rx TAB] Meloxicam 7.5 mg PO DAILY #30 tablet 11/25/17 Unknown Rx Omeprazole Magnesium [PriLOSEC Otc] 20 mg PO QDAY #14 tablet. 11/25/17 Unknown Rx Cyclobenzaprine [Flexeril] 10 mg PO BID PRN #20 tablet 01/24/18 Unknown Rx Menthol/Camphor [[place] 1 applic TP TID PRN #1 tube 01/24/18 Unknown Rx Ointment] Naproxen [Naprosyn TAB] 500 mg PO BID PRN #30 tablet 01/24/18 Unknown Rx traMADol [Ultram 50 MG tab] 50 mg PO Q6HR PRN #20 tablet 01/29/18 Unknown Rx Allergies Allergy/AdvReac Type Severity Reaction Status Date / Time No Known Allergies Allergy Verified 12/29/16 11:46 ED Review of Systems ROS: Stated complaint: NECK PAIN UNABLE TO SLEEP FAST HEARTBEAT Other details as noted in HPI Constitutional: denies: chills, fever Eyes: denies: eye pain, eye discharge, vision change ENT: denies: ear pain, throat pain Respiratory: denies: cough, shortness of breath, SOB with exertion, SOB at rest , wheezing Cardiovascular: denies: chest pain, palpitations, edema, syncope Gastrointestinal: denies: nausea Musculoskeletal: myalgia, other (bilateral leg pain). denies: back pain, joint swelling, arthralgia Skin: denies: rash, lesions Neurological: denies: headache, weakness, numbness, paresthesias, abnormal gait , vertigo ED Past Medical Hx - Past Medical History Previous Medical History?: Yes Hx Hypertension: No Hx CVA: No Hx Heart Attack/AMI: No Hx Congestive Heart Failure: No Hx Diabetes: No Hx Deep Vein Thrombosis: No Hx Pulmonary Embolism: No Hx GERD: No Hx Liver Disease: No Hx Renal Disease: No Hx Sickle Cell Disease: No Hx Arthritis: No Hx Headaches / Migraines: No Hx Seizures: No Hx Kidney Stones: No Hx Psychiatric Treatment: No Hx Asthma: No Hx COPD: No Hx Tuberculosis: No Hx Dementia: No Hx HIV: No Additional medical history: Status post fall with bilateral neck pain 9 days ago - Surgical History Past Surgical History?: No Hx Coronary Stent: No Hx Open Heart Surgery: No Hx Pacemaker: No Hx Internal Defibrillator: No Hx Cholecystectomy: No Hx Appendectomy: No Hx Breast Surgery: No - Family History Family history: no significant - Social History Smoking Status: Never Smoker Substance Use Type: None - Medications Home Medications: Home Medications Medication Instructions Recorded Confirmed Last Taken Type Amoxicillin/K Clav Tab [Augmentin 1 tab PO Q12HR #20 tab 12/29/16 Unknown Rx 875 mg] Cetirizine HCl [ZyrTEC] 10 mg PO QDAY #14 capsule 12/29/16 Unknown Rx Fluticasone [Flonase] 1 spray NS QDAY #1 bottle 12/29/16 Unknown Rx Ibuprofen [Motrin] 600 mg PO Q8H PRN #15 tablet 12/29/16 Unknown Rx Ondansetron [Zofran TAB] 4 mg PO Q8HR PRN #15 tablet 06/29/17 Unknown Rx Cyclobenzaprine HCl [Flexeril 5 MG 5 mg PO Q8HR PRN #15 tab 11/25/17 Unknown Rx TAB] Meloxicam 7.5 mg PO DAILY #30 tablet 11/25/17 Unknown Rx Omeprazole Magnesium [PriLOSEC Otc] 20 mg PO QDAY #14 tablet.dr 11/25/17 Unknown Rx Cyclobenzaprine [Flexeril] 10 mg PO BID PRN #20 tablet 01/24/18 Unknown Rx Menthol/Camphor [[place] 1 applic TP TID PRN #1 tube 01/24/18 Unknown Rx Ointment] Naproxen [Naprosyn TAB] 500 mg PO BID PRN #30 tablet 01/24/18 Unknown Rx traMADol [Ultram 50 MG tab] 50 mg PO Q6HR PRN #20 tablet 01/29/18 Unknown Rx ED Physical Exam - General Limitations: No Limitations General appearance: alert, in no apparent distress - Head Head exam: Present: atraumatic, normocephalic, normal inspection, other (normal exam) - Eye Eye exam: Present: normal appearance, PERRL, EOMI. Absent: nystagmus, periorbital swelling, periorbital tenderness Pupils: Present: normal accommodation - ENT ENT exam: Present: normal exam, normal orophraynx, mucous membranes moist, TM's normal bilaterally, normal external ear exam - Neck Neck exam: Present: normal inspection, full ROM (patient has full range of motion active and passive but reports pain with rotation of neck laterally. Nontender to palpate. No swelling or deformity noted. No C-spine tenderness), other (no C-spine tenderness). Absent: tenderness, meningismus, lymphadenopathy - Expanded Neck Exam Expanded Neck exam: Absent: tenderness, midline deformity, anterior neck swelling, thyroid mass, carotid bruit, tracheal deviation - Respiratory Respiratory exam: Present: normal lung sounds bilaterally. Absent: respiratory distress, chest wall tenderness - Cardiovascular Cardiovascular Exam: Present: regular rate, normal rhythm, normal heart sounds. Absent: systolic murmur, diastolic murmur - Extremities Exam Extremities exam: Present: normal inspection, full ROM, normal capillary refill , other (No cce. + 2 pulses in all extremities, no neurovascular compromise). Absent: tenderness, pedal edema, joint swelling, calf tenderness - Back Exam Back exam: Present: normal inspection, full ROM, other (ambulates without any difficulties). Absent: tenderness, CVA tenderness (R), CVA tenderness (L), muscle spasm, paraspinal tenderness, vertebral tenderness, rash noted - Expanded Back Exam Expanded Back exam: Absent: saddle anesthesia Back exam: Negative Straight Leg Raising: Left, Right - Neurological Exam Neurological exam: Present: alert, oriented X3, normal gait, reflexes normal, other (no focal neurological deficits). Absent: motor sensory deficit - Psychiatric Psychiatric exam: Present: normal affect, normal mood - Skin Skin exam: Present: warm, dry, intact, normal color. Absent: rash ED Course Vital Signs 01/29/18 01/29/18 02:40 08:52 Temperature 98.6 F Pulse Rate 69 Respiratory 18 Rate Blood Pressure 132/68 O2 Sat by Pulse 99 Oximetry - Reevaluation(s) Reevaluation #1: 01/29/18 09:08 Patient given Toradol 30 mg IM for pain ED Medical Decision Making - Radiology Data Radiology results: report reviewed X-ray a CT spine reveals normal findings. Patient: MIHAELA CORREIA MR#: [id number] : 1990 Acct:[id number] Age/Sex: 27 / M ADM Date: 01/29/18 Loc: ED Attending Dr: Ordering Physician: HAIM ARTHUR Date of Service: 01/29/18 Procedure(s): XR spine cervical 2-3V Accession Number(s): [id number] cc: HAIM ARTHUR Fluoro Time In Minutes: CERVICAL SPINE, 3 views: History: Neck pain. Findings: The vertebral bodies, disk spaces, posterior elements and prevertebral soft tissues are unremarkable. The dens is intact. No acute fracture or malalignment is identified. Impression: 1. No evidence for acute injury to the cervical spine. Transcribed By: TTR Dictated By: OUSMANE GONZALEZ JR, MD Electronically Authenticated By: OUSMANE GONZALEZ JR, MD Signed Date/Time: 01/29/18845 DD/ 5 TD/TT: 01/29/18845 - Medical Decision Making ED course 27-year-old male here with here present and with neck pain from injury that he had 9 days ago. He was here and ate second 2017 and was diagnosed with neck muscle strain and upper back strain and is referred which she did not go to. Patient was prescribed naproxen, Flexeril and camphor and he said is not helping his pain. Patient was seen and examined by myself and found to be stable at full range of motion to neck with some pain with lateral flexion and rotation bilateral neck. No C-spine tenderness. All of the physical findings were normal to include his back exam. I discussed with patient that he has not muscle strain which usually takes a couple weeks to resolves. Patient had x-rays cervical spine shows dictated by radiologist and report reviewed by myself and no abnormal findings found. This was discussed with patient and he voiced understanding and I discussed with him that he needs to follow up with specialist that he was referred to since he did not. I also discussed with him that specialist can refer him to physical therapy which she may need. Patient was given Toradol and Decadron in the emergency room which relieved his pain. A/P 1: Neck pain-better with Toradol 30 mg IM and Decadron 10 mg IM. Will discharge patient home and Ultram. I told him if naproxen and Flexeril is not helping that he needs to discontinue this. She will be referred to Dr. Akhtar orthopedic doctor I educated patient on medication, diagnosis, treatment plan and follow-up with orthopedic doctor and he voiced understanding. Patient discharged home in stable condition, vital signs are stable she is afebrile. Pain is better. Patient to follow-up with orthopedic 2 days and I also discussed with him that if his pain worsen to return to the emergency room. Patient given prescription for Ultram and to discontinue naproxen and Flexeril. He voiced understanding - Differential Diagnosis fracture, subluxation, strain, sprain, musculoskeletal pain Critical care attestation.: If time is entered above; I have spent that time in minutes in the direct care of this critically ill patient, excluding procedure time. ED Disposition Clinical Impression: Bilateral neck pain Neck muscle strain Qualifiers: Encounter type: subsequent encounter Qualified Code(s): S16.1XXD - Strain of muscle, fascia and tendon at neck level, subsequent encounter Disposition: DC-01 TO HOME OR SELFCARE Is pt being admited?: No Does the pt Need Aspirin: No Condition: Stable Instructions: Muscle Strain (ED) Additional Instructions: Please do not drive or operate heavy machinery while taking pain medication as this medication can cause drowsiness Follow-up with orthopedic doctor as instructed Please follow rice protocol Please follow up with your primary care physician as instructed and if you do not have one you can follow-up at [facility] return to the emergency room if your pain continues and you develop numbness or tingling to extremities. Referrals: TOYA GOMEZ MD [Primary Care Provider] - 01/31/18 MARIA DE JESUS AKHTAR MD [Staff Physician] - 01/31/18 Forms: Work/School Release Form(ED)
[2018-01-29] MEDS ORDERED: DECADRON IM ONE (08:20)
[2018-01-29] MEDS ORDERED: TORADOL IM ONE (08:20)
--- NOTE | 2018-01-29 08:53 | XRay Report ---
CERVICAL SPINE, 3 views: History: Neck pain. Findings: The vertebral bodies, disk spaces, posterior elements and prevertebral soft tissues are unremarkable. The dens is intact. No acute fracture or malalignment is identified. Impression: 1. No evidence for acute injury to the cervical spine.
[2018-01-29 09:43] VITALS: BP 126/78
== END 2018-01-29 09:20 | disposition home or self-care (01) ==
LOC: ED 02:33
DX: M54.2 Cervicalgia (principal); S16.1XXD Strain of muscle, fascia and tendon at neck level, subsequent encounter
CPT/HCPCS: 72040; 96372; 99283; J1100; J1885

== ENCOUNTER 2018-10-21 21:19 | Emergency (ER) | payer OTHER ==
--- NOTE | 2018-10-21 21:39 | Emergency Department Report ---
Chief Complaint: Abdominal Pain Stated Complaint: ABD PAIN/COUGH Time Seen by Provider: 10/21/18 21:37 - HPI History of Present Illness: pt states cough that began two weeks ago mucus production no SOB no fever no n/v/d no PMHx no daily meds no drug allergies non smoker non drinker no drug use no PCP - Exam Vital Signs: Vital Signs 10/21/18 21:28 Temperature 99 F Pulse Rate 85 Respiratory 18 Rate Blood Pressure 112/69 O2 Sat by Pulse 99 Oximetry MSE screening note: Focused history performed. Due to findings the following was ordered: CBC, BMP, CXR ED Disposition for MSE Condition: Stable
[2018-10-21 22:07] LABS: Hematocrit 42.9 % (35.5-45.6); Hemoglobin 14.7 gm/dl (11.8-15.2); Mean Corpuscular HGB Conc 34 % (32-34); Mean Corpuscular Volume 79 fl (84-94); Platelet Count 236 K/mm3 (140-440); Red Blood Count 5.45 M/mm3 (3.65-5.03); Red Cell Distribution Width 13.6 % (13.2-15.2)
--- NOTE | 2018-10-21 22:37 | XRay Report ---
PROCEDURE: XR CHEST ROUTINE 2V TECHNIQUE: 2V chest HISTORY: cough x 2 weeks COMPARISONS: FINDINGS: Cardiac and mediastinal contours are unremarkable. No focal pulmonary infiltrate identified. No pleur al fluid collection seen. Pulmonary vasculature is unremarkable IMPRESSION: Negative two-view chest. This document is electronically signed by Juan Condon MD., October 21 2018 10:35:07 PM ET
[2018-10-21 22:40] LABS: Anisocytosis Few; BUN/Creatinine Ratio 10; Basophils % (Manual) 0 % (0.0-1.8); Blood Urea Nitrogen 12 mg/dL (9-20); Calcium 9.5 mg/dL (8.4-10.2); Eosinophils % (Manual) 0 % (0.0-4.3); Hemolysis Index 26; Poikilocytosis Few; Total Cells Counted 100
--- NOTE | 2018-10-21 23:11 | Emergency Department Report ---
ED Abdominal Pain HPI - General Chief Complaint: Abdominal Pain Stated Complaint: ABD PAIN/COUGH Time Seen by Provider: 10/21/18 21:37 Source: patient Mode of arrival: Ambulatory Limitations: No Limitations - History of Present Illness Initial Comments: 28-year-old male presents to ED with complaint of cough. Patient denies fever, reports dry cough. States abdominal pain is periumbilical, and exacerbated by cough. Denies nausea, vomiting, or diarrhea. MD Complaint: abdominal pain -: week(s) (2) Location: periumbilical Radiation: none Migration to: no migration Severity: mild Quality: sharp Consistency: intermittent Improves With: nothing Worsens With: other (cough) Associated Symptoms: denies: nausea, vomiting, diarrhea, fever, constipation, dysuria, hematuria - Related Data Previous Rx's Medication Instructions Recorded Last Taken Type Amoxicillin/K Clav Tab [Augmentin 1 tab PO Q12HR #20 tab 12/29/16 Unknown Rx 875 mg] Cetirizine HCl [ZyrTEC] 10 mg PO QDAY #14 capsule 12/29/16 Unknown Rx Fluticasone [Flonase] 1 spray NS QDAY #1 bottle 12/29/16 Unknown Rx Ibuprofen [Motrin] 600 mg PO Q8H PRN #15 tablet 12/29/16 Unknown Rx Ondansetron [Zofran TAB] 4 mg PO Q8HR PRN #15 tablet 06/29/17 Unknown Rx Cyclobenzaprine HCl [Flexeril 5 MG 5 mg PO Q8HR PRN #15 tab 11/25/17 Unknown Rx TAB] Meloxicam 7.5 mg PO DAILY #30 tablet 11/25/17 Unknown Rx Omeprazole Magnesium [PriLOSEC Otc] 20 mg PO QDAY #14 tablet.dr 11/25/17 Unknown Rx Cyclobenzaprine [Flexeril] 10 mg PO BID PRN #20 tablet 01/24/18 Unknown Rx Menthol/Camphor [[place] 1 applic TP TID PRN #1 tube 01/24/18 Unknown Rx Ointment] Naproxen [Naprosyn TAB] 500 mg PO BID PRN #30 tablet 01/24/18 Unknown Rx traMADol [Ultram 50 MG tab] 50 mg PO Q6HR PRN #20 tablet 01/29/18 Unknown Rx Amoxicillin/K Clav Tab [Augmentin 1 tab PO Q12HR #20 tab 06/18/18 Unknown Rx 875MG TAB] Cetirizine HCl [ZyrTEC] 10 mg PO QAM 14 Days #14 capsule 06/18/18 Unknown Rx Fluticasone [Flonase] 1 spray NS QDAY 14 Days #1 bottle 06/18/18 Unknown Rx predniSONE [Prednisone] 10 mg PO QAM 6 Days #1 tab.ds.pk 06/18/18 Unknown Rx Chlorhexidine Mouthwash [Peridex] 15 ml MM BID #473 bottle 08/03/18 Unknown Rx Benzonatate [Tessalon Perles] 100 mg PO Q8HR PRN #20 capsule 10/21/18 Unknown Rx Naproxen [Naprosyn] 500 mg PO BID #20 tablet 10/21/18 Unknown Rx Allergies Allergy/AdvReac Type Severity Reaction Status Date / Time No Known Allergies Allergy Verified 08/03/18 00:42 ED Review of Systems ROS: Stated complaint: ABD PAIN/COUGH Other details as noted in HPI Comment: All other systems reviewed and negative Constitutional: denies: chills, fever Respiratory: cough. denies: shortness of breath Cardiovascular: denies: chest pain Gastrointestinal: abdominal pain. denies: nausea, vomiting, diarrhea, constipation Genitourinary: denies: dysuria, frequency, hematuria ED Past Medical Hx - Past Medical History Hx Hypertension: No Hx CVA: No Hx Heart Attack/AMI: No Hx Congestive Heart Failure: No Hx Diabetes: No Hx Deep Vein Thrombosis: No Hx Pulmonary Embolism: No Hx GERD: No Hx Liver Disease: No Hx Renal Disease: No Hx Sickle Cell Disease: No Hx Arthritis: No Hx Headaches / Migraines: No Hx Seizures: No Hx Kidney Stones: No Hx Psychiatric Treatment: No Hx Asthma: No Hx COPD: No Hx Tuberculosis: No Hx Dementia: No Hx HIV: No Additional medical history: Status post fall 06/2018 with bilateral neck pain - Surgical History Hx Coronary Stent: No Hx Open Heart Surgery: No Hx Pacemaker: No Hx Internal Defibrillator: No Hx Cholecystectomy: No Hx Appendectomy: No Hx Breast Surgery: No - Social History Smoking Status: Never Smoker Substance Use Type: None - Medications Home Medications: Home Medications Medication Instructions Recorded Confirmed Last Taken Type Amoxicillin/K Clav Tab [Augmentin 1 tab PO Q12HR #20 tab 12/29/16 Unknown Rx 875 mg] Cetirizine HCl [ZyrTEC] 10 mg PO QDAY #14 capsule 12/29/16 Unknown Rx Fluticasone [Flonase] 1 spray NS QDAY #1 bottle 12/29/16 Unknown Rx Ibuprofen [Motrin] 600 mg PO Q8H PRN #15 tablet 12/29/16 Unknown Rx Ondansetron [Zofran TAB] 4 mg PO Q8HR PRN #15 tablet 06/29/17 Unknown Rx Cyclobenzaprine HCl [Flexeril 5 MG 5 mg PO Q8HR PRN #15 tab 11/25/17 Unknown Rx TAB] Meloxicam 7.5 mg PO DAILY #30 tablet 11/25/17 Unknown Rx Omeprazole Magnesium [PriLOSEC Otc] 20 mg PO QDAY #14 tablet.dr 11/25/17 Unknown Rx Cyclobenzaprine [Flexeril] 10 mg PO BID PRN #20 tablet 01/24/18 Unknown Rx Menthol/Camphor [[place] 1 applic TP TID PRN #1 tube 01/24/18 Unknown Rx Ointment] Naproxen [Naprosyn TAB] 500 mg PO BID PRN #30 tablet 01/24/18 Unknown Rx traMADol [Ultram 50 MG tab] 50 mg PO Q6HR PRN #20 tablet 01/29/18 Unknown Rx Amoxicillin/K Clav Tab [[place]ment[place] 1 tab PO Q12HR #20 tab 06/18/18 Unknown Rx 875MG TAB] Cetirizine HCl [ZyrTEC] 10 mg PO QAM 14 Days #14 capsule 06/18/18 Unknown Rx Fluticasone [Flonase] 1 spray NS QDAY 14 Days #1 bottle 06/18/18 Unknown Rx predniSONE [Prednisone] 10 mg PO QAM 6 Days #1 tab.ds.pk 06/18/18 Unknown Rx Chlorhexidine Mouthwash [Peridex] 15 ml MM BID #473 bottle 08/03/18 Unknown Rx Benzonatate [Tessalon Perles] 100 mg PO Q8HR PRN #20 capsule 10/21/18 Unknown Rx Naproxen [Naprosyn] 500 mg PO BID #20 tablet 10/21/18 Unknown Rx ED Physical Exam - General Limitations: No Limitations General appearance: alert, in no apparent distress - Head Head exam: Present: atraumatic, normocephalic - Eye Eye exam: Present: normal appearance - ENT ENT exam: Present: mucous membranes moist - Neck Neck exam: Present: normal inspection - Respiratory Respiratory exam: Present: normal lung sounds bilaterally. Absent: respiratory distress - Cardiovascular Cardiovascular Exam: Present: regular rate, normal rhythm - GI/Abdominal GI/Abdominal exam: Present: soft. Absent: distended, tenderness - Extremities Exam Extremities exam: Present: normal inspection - Neurological Exam Neurological exam: Present: alert, oriented X3 - Psychiatric Psychiatric exam: Present: normal affect, normal mood - Skin Skin exam: Present: warm, dry, intact, normal color ED Course Vital Signs 10/21/18 10/22/18 21:28 00:19 Temperature 99 F 98.3 F Pulse Rate 85 69 Respiratory 18 16 Rate Blood Pressure 112/69 Blood Pressure 106/77 [Left] O2 Sat by Pulse 99 100 Oximetry ED Medical Decision Making - Lab Data Result diagrams: 10/21/18 21:54 10/21/18 21:54 - Radiology Data Radiology results: report reviewed, image reviewed - Medical Decision Making - cough, abd pain x 3 wks - appears nontoxic, exam unremarkable, abdomen soft and nontender - CXR negative - labs normal - rx given for naprosyn and tessalon - return precautions given - Differential Diagnosis uti, pneumonia, URi Critical care attestation.: If time is entered above; I have spent that time in minutes in the direct care of this critically ill patient, excluding procedure time. ED Disposition Clinical Impression: URI (upper respiratory infection), Abdominal pain Disposition: - TO HOME OR SELFCARE Is pt being admited?: No Condition: Stable Instructions: Upper Respiratory Infection (ED), Abdominal Pain (ED) Prescriptions: Naproxen [Naprosyn] 500 mg PO BID #20 tablet Benzonatate [Tessalon Perles] 100 mg PO Q8HR PRN #20 capsule PRN Reason: Cough Referrals: MCKENZIE BLANCO MD [Primary Care Provider] - 3-5 Days Time of Disposition: 23:54
[2018-10-21 23:26] LABS: Bilirubin,Urine NEG (Negative); Blood,Urine NEG (Negative); Color,Urine Straw (Yellow); Protein,Urine <15 mg/dL mg/dL (Negative); RBC,Urine < 1.0 /HPF (0.0-6.0); Urobilinogen,Urine < 2.0 mg/dL (<2.0)
[2018-10-22 00:21] VITALS: BP 106/77
== END 2018-10-22 00:19 | disposition home or self-care (01) ==
LOC: ED 21:19
DX: J06.9 Acute upper respiratory infection, unspecified (principal)
CPT/HCPCS: 36415; 71046; 80048; 81001; 85007; 85025; 99284

== ENCOUNTER 2019-06-12 19:27 | Emergency (ER) | payer BC ==
[2019-06-12 19:50] VITALS: BP 114/77
--- NOTE | 2019-06-12 23:44 | XRay Report ---
CHEST 1 VIEW INDICATION: chest pain. COMPARISON: none FINDINGS: SUPPORT DEVICES: None. HEART / MEDIASTINUM: No significant abnormality. LUNGS / PLEURA: No significant pulmonary or pleural abnormality. No pneumothorax. ADDITIONAL FINDINGS: IMPRESSION: 1. No acute findings. Signer Name: Karl Erickson MD Signed: 06/12/2019 11:39 PM Workstation Name: [id number]
== END 2019-06-12 22:00 | disposition left against medical advice (07) ==
LOC: ED 19:27
DX: R12 Heartburn (principal); Z53.21 Procedure and treatment not carried out due to patient leaving prior to being seen by health care provider
CPT/HCPCS: 71045